=== PATIENT | male | born 2000 | race Caucasian/White ===

== ENCOUNTER 2024-02-18 16:51 | Emergency (ER) | payer SELFPAY ==
[~2024-02-18] VITALS: Ht 172.7 cm; Wt 65.0 kg
[2024-02-18 17:01] VITALS: TEMP 98.7; O2SAT 99
[2024-02-18] MEDS: IBUPROFEN 400MG TABLET PO ONE (19:25)
[2024-02-18] MEDS ORDERED: IBUP-2028 MT (19:26)
[2024-02-18 20:07] VITALS: BP 116/63; PULSE 60; RESP 15
== END 2024-02-18 20:07 | disposition home or self-care (01) ==
LOC: ER 16:51
DX: M25.512 Pain in left shoulder (principal); Z90.49 Acquired absence of other specified parts of digestive tract
CPT/HCPCS: 73030; 73060; 99284